=== PATIENT | male | born 1965 | race Caucasian/White ===

== ENCOUNTER 2021-12-04 20:50 | Inpatient (IN) | payer BC ==
[~2021-12-04] VITALS: Ht 182.9 cm; Wt 124.7 kg
[2021-12-04 20:55] VITALS: BP_SYST 75
--- NOTE | 2021-12-04 20:55 | NUR ---
Placed in room 1 . Placed on hall monitor, blood pressure machine and pulse oximeter. To gown for exam. Side rails up. Report given to Lisa GILMORE(reg).
--- NOTE | 2021-12-04 20:56 | NUR ---
ER at bedside examining patient.
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
[2021-12-04] MEDS ORDERED: NACL 0.9% 2,000 ML IV ONE (21:15)
[2021-12-04 21:33] LABS: BASOPHILS # (AUTO) 0.1 K/uL (0.0-0.2); BASOPHILS % (AUTO) 0.7 % (0.0-2.0); EOSINOPHILS % (AUTO) 0.3 % (0.0-4.0); HEMATOCRIT 46.9 % (36-54); HEMOGLOBIN 15.7 g/dL (14.0-18.0); LYMPHOCYTES # (AUTO) 2.2 K/uL (1.0-5.5); LYMPHOCYTES % (AUTO) 17.1 % (20.5-51.5); MEAN CORPUSCULAR HEMOGLOBIN 27 pg (27-31); MEAN CORPUSCULAR HGB CONC 34 % (32-36); MEAN CORPUSCULAR VOLUME 82 fL (79.0-98.0); MONOCYTES # (AUTO) 0.6 K/uL (0.0-1.0); NEUTROPHILS % (AUTO) 76.9 % (40.0-70.0); PLATELET COUNT (AUTO) 329 K/uL (130-430); RED BLOOD CELL COUNT(AUTO) 5.75 MIL/uL (4.2-6.2); RED CELL DISTRIBUTION WIDTH 15.2 % (9.0-15.0); WHITE BLOOD COUNT (AUTO) 12.9 K/uL (4.8-10.8)
[2021-12-04] MEDS ORDERED: NACL 0.9% 1,000 ML IV ONE (22:00)
--- NOTE | 2021-12-04 22:38 | NUR ---
INFORMED PATIENT ON PLAN OF CARE AND ADMISSION, HE VERBALIZED UNDERSTANDING
[2021-12-04] MEDS ORDERED: INSULIN REGULAR, HUMAN 100 UNITS/ML, 10 ML VIAL (humuLIN R) SUBCUT PRN (22:45)
--- NOTE | 2021-12-04 23:03 | NUR ---
Admit bed requested Patient will be admitted to care of Dr.A. JAIN. Admitted to TELE unit. Diagnosis HYPOTENSION Inpatient (Yes or No) YES Observation (Yes or No) NO Orientation concerns or request close to nursing station (Yes or No) NO Covid Status PENDING On vent or bipap NO Isolation requirements NO Needs a sitter NO From Home (Yes or if No enter name of facility) YES Requires Dialysis (Yes or No) NO Med Rec Completed (Yes of No) PENDING
[2021-12-04 23:11] LABS: CALCIUM 9.7 mg/dL (8.4-11.0); CREATININE 2.53 mg/dL (0.55-1.30); POTASSIUM 3.8 mmol/L (3.5-5.1)
[2021-12-04 23:17] LABS: ALBUMIN 4.1 g/dL (3.4-4.8); TOTAL BILIRUBIN 0.7 mg/dL (0.0-1.0)
[2021-12-05] MEDS ORDERED: IBUPROFEN 600 MG TABLET PO ONE (00:15)
[2021-12-05] MEDS: D5/0.45 NS 1,000 ML IV SCH ×3 (00:24→18:25)
--- NOTE | 2021-12-05 00:45 | NUR ---
SBAR REPORT GIVEN TO TRISTIN GILMORE, PT AAOX4, NO SOB NOTED AND NO DISTRESS NOTED UPON TRANSFER.
[2021-12-05 01:02] VITALS: BP_SYST 120
--- NOTE | 2021-12-05 01:52 | NUR ---
Patient admitted to room 104 (a). No acute distress noted. No complaint of pain or discomfort. Skin warm dry and intact. Will continue to monitor.
--- NOTE | 2021-12-05 01:57 | NUR ---
Patient has a wallet, shoes, pants, shirt, phone, underwear and a charger operator.
[2021-12-05 07:00] VITALS: BP_SYST 134
[2021-12-05 08:00] VITALS: BP_SYST 134
[2021-12-05] MEDS ORDERED: ONDANSETRON HCL 4 MG/2 ML VIAL IVP PRN (09:45)
[2021-12-05] MEDS ORDERED: HYDROcodone/ACETAMIN 5-325 MG TAB (NORCO/ VICODIN) PO PRN (09:45)
[2021-12-05] MEDS ORDERED: ACETAMINOPHEN 325 MG TABLET PO PRN (09:45)
[2021-12-05] MEDS ORDERED: NALOXONE HCL 0.4 MG/ML AMP (NARCAN) IVP PRN ×2 (09:45)
--- NOTE | 2021-12-05 09:48 | NUR ---
CONSULT NEUROLOGY SYNCOPE ANGEL PALACIO SENT A TEXT MESSAGE TO DR ARAUJO
--- NOTE | 2021-12-05 09:49 | NUR ---
CONSULT NEPHROLOGY KENNEDI DR STUBBS [phone] S/W [facility] OFFICE
--- NOTE | 2021-12-05 09:54 | NUR ---
CONSULT CARDIOLOGY SYNCOPE DR JAINJEAN MARIE [phone] S/E [facility] EXCHANGE
[2021-12-05 09:59] LABS: BASOPHILS % (AUTO) 0.5 % (0.0-2.0); EOSINOPHILS # (AUTO) 0.1 K/uL (0.0-0.4); EOSINOPHILS % (AUTO) 0.9 % (0.0-4.0); HEMOGLOBIN 13.5 g/dL (14.0-18.0); LYMPHOCYTES # (AUTO) 2.4 K/uL (1.0-5.5); LYMPHOCYTES % (AUTO) 24.9 % (20.5-51.5); MEAN CORPUSCULAR HEMOGLOBIN 28 pg (27-31); MEAN CORPUSCULAR HGB CONC 34 % (32-36); MEAN CORPUSCULAR VOLUME 82 fL (79.0-98.0); MONOCYTES # (AUTO) 0.7 K/uL (0.0-1.0); MONOCYTES % (AUTO) 6.9 % (1.7-9.3); NEUTROPHILS # (AUTO) 6.6 K/uL (1.8-7.7); NEUTROPHILS % (AUTO) 66.8 % (40.0-70.0); PLATELET COUNT (AUTO) 254 K/uL (130-430); RED BLOOD CELL COUNT(AUTO) 4.89 MIL/uL (4.2-6.2); RED CELL DISTRIBUTION WIDTH 15.2 % (9.0-15.0); WHITE BLOOD COUNT (AUTO) 9.8 K/uL (4.8-10.8)
[2021-12-05 11:16] VITALS: BP_SYST 137
[2021-12-05 11:47] LABS: ALBUMIN 3.4 g/dL (3.4-4.8); CALCIUM 8.6 mg/dL (8.4-11.0); CREATININE 1.7 mg/dL (0.55-1.30); POTASSIUM 3.9 mmol/L (3.5-5.1); THYROID STIMULATING HORMONE 1.64 uIu/mL (0.36-3.74); TOTAL BILIRUBIN 0.3 mg/dL (0.0-1.0)
--- NOTE | 2021-12-05 11:50 | NUR ---
TEAM CDL DRIVER ACSW Magaly responded to a generated Carding Utility Tender Referral for "Pt needs child protective services social worker referral". ACSW reviewed notes and assessment, admission assessment displayed request for Advance Directive. ACSW met with patient at bedside. Patient was awake, AOx4. ACSW completed introductions, reason for referral and provided business card. Patient was open to contact. Patient expressed not understanding what the Advanced Directive is. ACSW provided brief explanation of an Advanced Directive, and patient declined document. ACSW inquired into further need for environmental services director to which patient stated he had none. ACSW will continue to be available as needed
[2021-12-05 16:25] VITALS: BP_SYST 132
[2021-12-05] MEDS: HYDROcodone/ACETAMIN 10-325 MG TAB PO PRN ×2 (18:25→22:37)
[2021-12-05 19:22] VITALS: BP_SYST 115
[2021-12-06 00:30] VITALS: BP_SYST 127
[2021-12-06] MEDS: D5/0.45 NS 1,000 ML IV SCH ×2 (04:33→14:48)
[2021-12-06 06:34] LABS: BASOPHILS % (AUTO) 0.6 % (0.0-2.0); EOSINOPHILS # (AUTO) 0.1 K/uL (0.0-0.4); EOSINOPHILS % (AUTO) 1.7 % (0.0-4.0); HEMATOCRIT 38.2 % (36-54); HEMOGLOBIN 13.2 g/dL (14.0-18.0); LYMPHOCYTES # (AUTO) 2.8 K/uL (1.0-5.5); MEAN CORPUSCULAR HEMOGLOBIN 28 pg (27-31); MEAN CORPUSCULAR HGB CONC 35 % (32-36); MEAN CORPUSCULAR VOLUME 81 fL (79.0-98.0); MONOCYTES # (AUTO) 0.6 K/uL (0.0-1.0); NEUTROPHILS % (AUTO) 52.7 % (40.0-70.0); PLATELET COUNT (AUTO) 223 K/uL (130-430); RED CELL DISTRIBUTION WIDTH 14.5 % (9.0-15.0); WHITE BLOOD COUNT (AUTO) 7.6 K/uL (4.8-10.8)
[2021-12-06 07:00] VITALS: BP_SYST 129
[2021-12-06 07:08] LABS: ALBUMIN 3.1 g/dL (3.4-4.8); CALCIUM 8.3 mg/dL (8.4-11.0); CREATININE 1.31 mg/dL (0.55-1.30); PHOSPHORUS 3.8 mg/dL (2.7-4.5); POTASSIUM 3.8 mmol/L (3.5-5.1); TOTAL BILIRUBIN 0.5 mg/dL (0.0-1.0)
--- NOTE | 2021-12-06 07:08 | NUR ---
Page to provider MD King as patient is requesting "a shot" for left knee pain. Monroe Mccann RN
--- NOTE | 2021-12-06 07:34 | NUR ---
MD King order for voltaren gel tid for left knee pain not available in order menu. Will endorse to day team RN. Monroe Mccann RN
[2021-12-06 08:00] VITALS: BP_SYST 129
--- NOTE | 2021-12-06 09:35 | NUR ---
CONSULTATION PAGED REASON FOR CONSULTATION:LEFT KNEE PAIN/INTERNAL DERANGEMENT WAS CONSULT CALLED?Y PERSON WHO WAS NOTIFIED:ELAINE CONSULTING PHYSICIAN:RADHIKA RAMIREZ ACCESS DEVELOPER SPECIALTY:ORTHO ACCESS DEVELOPER PHONE NUMBER:[phone] REQUESTING PHYSICIAN:ANNEMARIE MIGUEL
[2021-12-06] MEDS: OXYCODONE/ACETAMINOPHEN *10*mg/325 mg TABLET PO PRN ×3 (10:27→20:39)
--- NOTE | 2021-12-06 15:44 | NUR ---
Dietitian Recommendations * Continue [facility] diet [facility], MS, RD Please refer to Nutrition Assessment for details. Addendum: 12/06/21 at [address] Amended: Links added.
[2021-12-06 20:00] VITALS: BP_SYST 131
[2021-12-06] MEDS ORDERED: HYDROmorphone 2 MG/ML VIAL IVP PRN (20:30)
--- NOTE | 2021-12-06 21:45 | NUR ---
Paged Dr. Liza King.
[2021-12-07] VITALS: BP_SYST 127
[2021-12-07] MEDS: OXYCODONE/ACETAMINOPHEN *10*mg/325 mg TABLET PO PRN ×5 (01:20→22:58)
[2021-12-07] MEDS: D5/0.45 NS 1,000 ML IV SCH (01:21)
[2021-12-07 04:00] VITALS: BP_SYST 125
[2021-12-07 07:00] VITALS: BP_SYST 146
[2021-12-07 07:27] LABS: BASOPHILS # (AUTO) 0.1 K/uL (0.0-0.2); BASOPHILS % (AUTO) 0.8 % (0.0-2.0); EOSINOPHILS # (AUTO) 0.1 K/uL (0.0-0.4); EOSINOPHILS % (AUTO) 0.9 % (0.0-4.0); HEMATOCRIT 39.6 % (36-54); HEMOGLOBIN 13.5 g/dL (14.0-18.0); LYMPHOCYTES # (AUTO) 2.2 K/uL (1.0-5.5); LYMPHOCYTES % (AUTO) 21.2 % (20.5-51.5); MEAN CORPUSCULAR HEMOGLOBIN 28 pg (27-31); MEAN CORPUSCULAR HGB CONC 34 % (32-36); MEAN CORPUSCULAR VOLUME 82 fL (79.0-98.0); MONOCYTES # (AUTO) 0.7 K/uL (0.0-1.0); MONOCYTES % (AUTO) 6.9 % (1.7-9.3); NEUTROPHILS # (AUTO) 7.2 K/uL (1.8-7.7); NEUTROPHILS % (AUTO) 70.2 % (40.0-70.0); PLATELET COUNT (AUTO) 251 K/uL (130-430); RED BLOOD CELL COUNT(AUTO) 4.82 MIL/uL (4.2-6.2); RED CELL DISTRIBUTION WIDTH 14.8 % (9.0-15.0); WHITE BLOOD COUNT (AUTO) 10.3 K/uL (4.8-10.8)
[2021-12-07 08:05] LABS: ALBUMIN 3.3 g/dL (3.4-4.8); CALCIUM 8.6 mg/dL (8.4-11.0); CREATININE 1.25 mg/dL (0.55-1.30); PHOSPHORUS 3.6 mg/dL (2.7-4.5); POTASSIUM 4.2 mmol/L (3.5-5.1); TOTAL BILIRUBIN 0.5 mg/dL (0.0-1.0)
[2021-12-07 11:25] VITALS: BP_SYST 135
--- NOTE | 2021-12-07 12:43 | NUR ---
Spoke w/ Dr Watson-ortho- he stated he plans to do a cortizone injection in patient's (L) knee today and the patient will need PT to evaluate after injection before the patient is dischaarged.
[2021-12-07] MEDS ORDERED: IBUPROFEN PO SCH (15:00)
[2021-12-07] MEDS ORDERED: FAMOTIDINE PO SCH (15:00)
[2021-12-07 16:23] VITALS: BP_SYST 130
--- NOTE | 2021-12-07 16:59 | NUR ---
P.T. NOTES P.T. EVAL COMPLETED; REFER TO EVAL FOR DETAILS.
[2021-12-08] MEDS: OXYCODONE/ACETAMINOPHEN *10*mg/325 mg TABLET PO PRN ×3 (00:48→10:54)
--- NOTE | 2021-12-08 04:00 | NUR ---
Pt was removed from telemetry per MD mora
[2021-12-08 05:48] VITALS: BP_SYST 136
[2021-12-08 07:01] LABS: BASOPHILS % (AUTO) 0.1 % (0.0-2.0); HEMATOCRIT 41.4 % (36-54); HEMOGLOBIN 14.2 g/dL (14.0-18.0); LYMPHOCYTES # (AUTO) 0.9 K/uL (1.0-5.5); LYMPHOCYTES % (AUTO) 8.3 % (20.5-51.5); MEAN CORPUSCULAR HEMOGLOBIN 28 pg (27-31); MEAN CORPUSCULAR HGB CONC 34 % (32-36); MEAN CORPUSCULAR VOLUME 81 fL (79.0-98.0); MONOCYTES # (AUTO) 0.3 K/uL (0.0-1.0); MONOCYTES % (AUTO) 2.3 % (1.7-9.3); NEUTROPHILS # (AUTO) 10.2 K/uL (1.8-7.7); NEUTROPHILS % (AUTO) 89.3 % (40.0-70.0); PLATELET COUNT (AUTO) 281 K/uL (130-430); RED BLOOD CELL COUNT(AUTO) 5.15 MIL/uL (4.2-6.2); RED CELL DISTRIBUTION WIDTH 14.6 % (9.0-15.0); WHITE BLOOD COUNT (AUTO) 11.4 K/uL (4.8-10.8)
[2021-12-08 07:22] LABS: CALCIUM 9.3 mg/dL (8.4-11.0); CREATININE 1.14 mg/dL (0.55-1.30); POTASSIUM 4.1 mmol/L (3.5-5.1)
[2021-12-08] MEDS ORDERED: PERC10 PO ×3 (07:45→09:21)
[2021-12-08] MEDS ORDERED: IBUP-1816 PO (07:45)
[2021-12-08 10:56] VITALS: BP_SYST 136
[2021-12-08 12:30] VITALS: BP_SYST 135
--- NOTE | 2021-12-08 12:30 | NUR ---
CM: discussed dc to home with FWW and HH/PT with pt and dtr/Tricia: informed them that cm is unable to arrange or get authorization per order dt [facility] is closed during weekend, business hours is M-F 8a-5p. Per Tricia, she will but a walker for the pt and agreed to take pt home. Made aware that CM Dept will contact the [facility] to arrange the home health/PT and FWW. I faxed the order and referral to fax # [phone] and [phone] attn CM dept. DCP and Maria Alejandra,director made aware. -- DEIRDRE Moreno made aware.
[2021-12-08 14:35] VITALS: BP_SYST 126
--- NOTE | 2021-12-08 15:26 | NUR ---
AAOX4 NAD NOTED. DISCHARGE EDUCATION PROVIDED. PT VERBALIZED UNDERSTANDING OF TEACHINGS. DAUGHTER AT BEDSIDE FOR TRANSPORT. PER CM PT CLEARED FOR DISCHARGE. PT AND DAUGHTER STATED PT WILL USE GRANDFATHERS WALKER UNTIL WALKER IS DELIVERED. ACCORDING TO CM NEW WALKER WILL BE DELIVERED TO PT HOME ON FRIDAY. PT AND DAUGHTER PROVIDED WITH CONTACT INFORMATION AND INFORMED TO CALL FRIDAY AT 11AM IF WALKER HAS NOT BEEN DELIVERED. PT AND DAUGHTER VERBALIZED UNDERSTANDING OF TEACHINGS. DENIED FURTHER QUESTIONS.STAFF ESCORTED PT TO PRIVATE VEHICLE WITHOUT INCIDENT.
[2021-12-08 16:26] VITALS: BP_SYST 137
== END 2021-12-08 15:15 | disposition home health service (06) | DRG 640 ==
LOC: SED 20:50 → SMU 22:39 → STU 12-05 00:33 → SMU 12-07 13:13 → STU 12-07 23:50 → SMU 12-08 03:48
PROVIDERS: ADMIT Preventive Medicine Preventive Medicine/Occupational Environmental Medicine; ATTEND Preventive Medicine Preventive Medicine/Occupational Environmental Medicine
PROC: 4A10X4Z Monitoring of Central Nervous Electrical Activity, External Approach (ICD-10-PCS; principal; 2021-12-06)
DX: E86.0 Dehydration (principal); N17.0 Acute kidney failure with tubular necrosis; M25.462 Effusion, left knee; S83.242A Other tear of medial meniscus, current injury, left knee, initial encounter; S96.912A Strain of unspecified muscle and tendon at ankle and foot level, left foot, initial encounter; M10.9 Gout, unspecified; M19.90 Unspecified osteoarthritis, unspecified site; E88.09 Other disorders of plasma-protein metabolism, not elsewhere classified; M17.12 Unilateral primary osteoarthritis, left knee; X58.XXXA Exposure to other specified factors, initial encounter; Z20.822 Contact with and (suspected) exposure to COVID-19; E11.65 Type 2 diabetes mellitus with hyperglycemia; E87.2 Acidosis; I12.9 Hypertensive chronic kidney disease with stage 1 through stage 4 chronic kidney disease, or unspecified chronic kidney disease; N18.9 Chronic kidney disease, unspecified; E11.22 Type 2 diabetes mellitus with diabetic chronic kidney disease; D72.829 Elevated white blood cell count, unspecified; Y93.89 Activity, other specified; Y92.89 Other specified places as the place of occurrence of the external cause; Y99.8 Other external cause status
CPT/HCPCS: 36415; 70450-TC; 71045; 73560-TC; 73721; 76376; 76770; 80048; 80053; 80061; 82962; 83605; 83735; 84100; 84311; 84443; 84484; 85025; 87040; 93005; 93306; 93880; 95816; 96360; 96361; 97112-GP; 99285; G0378; J1815; J7030